=== PATIENT | male | born 1985 | race African-American/Black ===

== ENCOUNTER 2020-09-20 18:02 | Emergency (ER) | payer BC ==
[~2020-09-20 18:02] MED LIST: Iopamidol-370 76% 500 ML 1 ML ONE
[2020-09-20] MEDS ORDERED: Ketorolac Tromethamine 30 MG/ML VIAL ONE (18:37)
[2020-09-20 18:46] LABS: Hemoglobin 14.6 g/dL (14.0-18.0); Mean Corpuscular HGB CONC 32.7 g/dL (32.0-36.0); Mean Corpuscular Hemoglobin 28.3 pg (27.0-31.0); Mean Corpuscular Volume 86.5 fL (78.0-98.0); Platelet Count 332 thou/uL (130-400); RBC Distribution Width 12.4 % (11.5-14.5); Red Blood Cell (RBC) Count 5.17 mill/uL (4.70-6.10)
[2020-09-20 19:11] LABS: ALT (SGPT) 47 U/L (8-55); AST (SGOT) 43 U/L (5-34); Albumin 3.9 g/dL (3.5-5.0); Alkaline Phosphatase 156 U/L (40-110); Anion Gap 13 mmol/L (10-20); BUN (Urea Nitrogen) 8 mg/dL (8.9-20.6); Bilirubin, Total 0.6 mg/dL (0.2-1.2); Calc. Creatinine Clearance 0 mL/min (70-130); Carbon Dioxide 23 mmol/L (22-29); Chloride 104 mmol/L (98-107); Globulin 4.3 g/dL (2.4-3.5); Glucose 89 mg/dL (70-105); Potassium 4.2 mmol/L (3.5-5.1); Protein, Total 8.2 g/dL (6.0-8.3); Sodium 136 mmol/L (136-145)
[2020-09-20 19:13] LABS: Band 8 % (5-11); Eosinophils 11 % (0-10); Lymphocytes 15 % (21-51); MDiff Complete? YES; Monocytes 16 % (0-10); Neutrophil 49 % (42-75); Platelet Morphology Comment Appears Adequate; RBC Morphology Normal; Reactive Lymphocytes 1 % (0-10)
[2020-09-20 19:24] LABS: Actual Bicarbonate (HCO3v) 25 mEq/L (22-28); Analyzer IN Cardio ER; Base Excess -0.3 mEq/L (-2.0 to +3.0); Calcium, Ionized (venous) 1.14 mmol/L (1.16-1.32); Chloride (VBG) 103 mmol/L (98-106); Hemoglobin (Hb) 16.1 g/dL (13.2-17.3); Potassium (VBG) 3.96 mmol/L (3.70-5.30); Sodium 137.7 mmol/L (133-146); pH (venous) 7.39 (7.32-7.43)
[2020-09-20 19:57] LABS: SARS-CoV-2 NAA Rapid Test Not Detected (NotDetected)
[2020-09-20] MEDS ORDERED: Acetaminophen 500 MG TAB ONE (19:59)
[2020-09-20] MEDS ORDERED: Ondansetron PF 4 MG/2 ML Vial ONE (19:59)
== END 2020-09-20 22:19 | disposition home or self-care (01) ==
LOC: ERS 18:02
DX: R06.02 Shortness of breath (principal); R05 Cough; R07.9 Chest pain, unspecified; Z20.822 Contact with and (suspected) exposure to COVID-19
CPT/HCPCS: 0240U; 71045; 71275; 74177; 80053; 82805; 84484; 85025; 85379; 93005; 96374; 96375; J1885; J2405; Q9967

== ENCOUNTER 2020-10-01 06:51 | Day surgery (SDC) | payer BC ==
[2020-09-30 10:29] VITALS: BMI 36.0
[2020-10-01] MEDS ORDERED: EPINEPHrine 1 MG/ML AMP ONE (07:19)
[2020-10-01] MEDS ORDERED: Bupivacaine PF 0.5% 30 ML VIAL ONE (07:19)
[2020-10-01] MEDS ORDERED: Dexamethasone 4 mg/ml Vial ONE (07:19)
[2020-10-01] MEDS ORDERED: Fentanyl 100 MCG/2 ML VIAL ONE (07:20)
[2020-10-01] MEDS ORDERED: Midazolam HCl 2 mg/2 ml Vial ONE (08:43)
[2020-10-01] MEDS ORDERED: Ketorolac Tromethamine 30 MG/ML VIAL ONE (08:53)
[2020-10-01] MEDS ORDERED: Rocuronium Bromide 10 MG/ML (10ML VIAL) ONE (08:53)
[2020-10-01] MEDS ORDERED: PROPOFOL 200 MG/20 ML VIAL ONE (08:53)
[2020-10-01] MEDS ORDERED: Glycopyrrolate 0.2 MG/ML 5 ML SYRINGE ONE (08:53)
[2020-10-01] MEDS ORDERED: Dexamethasone 20 MG/5 ML VIAL ONE (08:53)
[2020-10-01] MEDS ORDERED: Ondansetron PF 4 MG/2 ML Vial ONE (08:53)
[2020-10-01] MEDS ORDERED: Lidocaine 1% PF 5 ML VIAL ONE (08:53)
== END 2020-10-01 13:00 | disposition home or self-care (01) ==
LOC: SDC 06:51
PROVIDERS: ATTEND Thoracic Surgery (Cardiothoracic Vascular Surgery)
PROC: 07B74ZX Excision of Thorax Lymphatic, Percutaneous Endoscopic Approach, Diagnostic (ICD-10-PCS; principal; 2020-10-01)
DX: I88.8 Other nonspecific lymphadenitis (principal); K21.9 Gastro-esophageal reflux disease without esophagitis; F17.210 Nicotine dependence, cigarettes, uncomplicated; Z79.899 Other long term (current) drug therapy
CPT/HCPCS: 88184; 88307; J0171; J0690; J1100; J1885; J2250; J2405; J2704; J3010; S0020

== ENCOUNTER 2021-01-18 01:22 | Emergency (ER) | payer BC ==
[2021-01-18] MEDS ORDERED: Morphine 4 MG/ML VIAL ONE (01:48)
[2021-01-18] MEDS ORDERED: Ondansetron PF 4 MG/2 ML Vial ONE (01:48)
[2021-01-18 02:03] LABS: #Eosinphils 0.2 thou/uL (0.0-0.7); #Lymphocytes 1.5 thou/uL (1.20-3.40); #Monocytes 0.8 thou/uL (0.11-0.59); #Neutrophils 3.7 thou/uL (1.40-6.50); %Basophils 0.5 % (0.0-1.0); %Eosinophils 2.7 % (0.0-10.0); %Lymphocytes 24.1 % (21.0-51.0); %Monocytes 12.6 % (0.0-10.0); %Neutrophils 60.1 % (42.0-75.0); Hemoglobin 15.5 g/dL (14.0-18.0); Mean Corpuscular Volume 88.6 fL (78.0-98.0); Mean Platelet Volume 6.8 fL (7.4-10.4); Platelet Count 252 thou/uL (130-400); RBC Distribution Width 13.5 % (11.5-14.5); Red Blood Cell (RBC) Count 4.98 mill/uL (4.70-6.10); White Blood Cell (WBC) Count 6.2 thou/uL (4.8-10.8)
[2021-01-18 02:26] LABS: ALT (SGPT) 42 U/L (8-55); AST (SGOT) 29 U/L (5-34); Alkaline Phosphatase 95 U/L (40-110); Anion Gap 14 mmol/L (10-20); BUN (Urea Nitrogen) 7 mg/dL (8.9-20.6); Calc. Creatinine Clearance 0 mL/min (70-130); Calcium 9.2 mg/dL (7.8-10.44); Carbon Dioxide 23 mmol/L (22-29); Chloride 105 mmol/L (98-107); Globulin 2.6 g/dL (2.4-3.5); Glucose 91 mg/dL (70-105); Lipase 19 U/L (8-78); Potassium 3.6 mmol/L (3.5-5.1); Protein, Total 6.6 g/dL (6.0-8.3); Sodium 138 mmol/L (136-145)
[2021-01-18 03:06] LABS: Bacteria/HPF None Seen HPF (None Seen); Bilirubin Negative (Negative); Blood, Urine Negative (Negative); Clarity Clear (Clear); Glucose, Urine (Dipstick) Normal (Negative); Ketone, Urine Negative (Negative); Leukocyte 250 Leu/uL (Negative); Nitrite Negative (Negative); Protein, Urine (Dipstick) Negative (Neg-Trace); RBC/HPF None Seen HPF (0-3); Specific Gravity, Urine 1.014 (1.002-1.036); Squamous Epithelial 0-3 HPF (0-3); Urobilinogen Normal mg/dL (Less than 2)
[2021-01-18] MEDS ORDERED: Iopamidol-370 76% 500 ML 1 ML ONE (09:33)
[2021-01-20 06:34] LABS: Chlam.trachomatis by PCR,Urine Not Detected (NotDetected)
== END 2021-01-18 04:15 | disposition home or self-care (01) ==
LOC: ERS 01:22
DX: R10.13 Epigastric pain (principal); R82.81 Pyuria
CPT/HCPCS: 36415; 74177; 80053; 81003; 81015; 83690; 85025; 87086; 87491; 87591; 96374; 96375; J2270; J2405; Q9967

== ENCOUNTER 2021-03-09 15:07 | Emergency (ER) | payer BC | END 2021-03-09 17:05 | disposition home or self-care (01) | LOC: ERS 15:07 | DX: N50.812 Left testicular pain (principal); F17.210 Nicotine dependence, cigarettes, uncomplicated; Z79.52 Long term (current) use of systemic steroids; Z79.899 Other long term (current) drug therapy | CPT/HCPCS: 76870; 93976 ==

== ENCOUNTER 2023-05-03 12:21 | Emergency (ER) | payer BC, OTHER ==
[2023-05-03] MEDS ORDERED: Ketorolac Tromethamine 30 MG (1 mL) VIAL ONE (12:38)
[2023-05-03] MEDS ORDERED: Ondansetron PF 4 MG/2 ML Vial ONE (12:38)
[2023-05-03 12:54] LABS: #Eosinphils 0.2 thou/uL (0.0-0.7); #Monocytes 0.6 thou/uL (0.11-0.59); #Neutrophils 1.9 thou/uL (1.40-6.50); %Basophils 0.9 % (0.0-1.0); %Eosinophils 4.7 % (0.0-10.0); %Monocytes 13.7 % (0.0-10.0); %Neutrophils 40.8 % (42.0-75.0); Hematocrit 45.9 % (42.0-52.0); Hemoglobin 15.7 g/dL (14.0-18.0); Mean Corpuscular HGB CONC 34.2 g/dL (32.0-36.0); Mean Corpuscular Hemoglobin 28.5 pg (27.0-31.0); Mean Corpuscular Volume 83.3 fl (78.0-98.0); Mean Platelet Volume 9.1 fL (7.4-10.4); Platelet Count 265 10x3/uL (130-400); RBC Distribution Width 12.6 % (11.5-14.5); Red Blood Cell (RBC) Count 5.51 mill/uL (4.70-6.10); White Blood Cell (WBC) Count 4.7 10x3/uL (4.8-10.8)
[2023-05-03 13:19] LABS: ALT (SGPT) 43 U/L (8-55); AST (SGOT) 32 U/L (5-34); Albumin 4.4 g/dL (3.5-5.0); Alkaline Phosphatase 88 U/L (40-110); Anion Gap 10 mmol/L (10-20); BUN (Urea Nitrogen) 10 mg/dL (8.9-20.6); Bilirubin, Total 1.1 mg/dL (0.2-1.2); Calc. Creatinine Clearance 0 mL/min (70-130); Calcium 9.5 mg/dL (7.8-10.44); Carbon Dioxide 29 mmol/L (22-29); Chloride 103 mmol/L (98-107); Estimated GFR 80; Globulin 3.5 g/dL (2.4-3.5); Glucose 135 mg/dL (70-105); Lipase 36 U/L (8-78); Potassium 4.4 mmol/L (3.5-5.1); Protein, Total 7.9 g/dL (6.0-8.3); Sodium 138 mmol/L (136-145)
[2023-05-03 14:55] LABS: Bacteria/HPF None Seen HPF (None Seen); Bilirubin Negative (Negative); Blood, Urine Negative (Negative); CAUTI Indications for Culture Acute Hematuria; Clarity Clear (Clear); Glucose, Urine (Dipstick) Normal (Negative); Ketone, Urine Negative (Negative); Leukocyte 25 Leu/uL (Negative); Nitrite Negative (Negative); Protein, Urine (Dipstick) Negative (Neg-Trace); RBC/HPF None Seen HPF (0-3); Specific Gravity, Urine 1.012 (1.002-1.036); Squamous Epithelial 0-3 HPF (0-3); Urine Culture Reflex No No; Urobilinogen Normal mg/dL (Less than 2); pH, Urine 7.5 (5.0-9.0)
== END 2023-05-03 15:31 ==
LOC: ERS 12:21 → EEVIPCON 12:21 → ERS 15:31
DX: R10.32 Left lower quadrant pain (principal); R11.0 Nausea; F17.210 Nicotine dependence, cigarettes, uncomplicated
CPT/HCPCS: 36415; 74176; 80053; 81001; 83690; 85025; 94760; 96374; 96375; J1885; J2405